=== PATIENT | female | born 1980 | race Caucasian/White ===

== ENCOUNTER 2018-05-30 14:32 | Emergency (ER) | payer OTHER ==
--- NOTE | 2018-05-30 14:33 | PDOC ---
History of Present Illness - General Chief Complaint: Vomiting/Diarrhea Stated Complaint: VOMITING, DIARRHEA, ABD CRAMPING Time Seen by Provider: 05/30/18 14:33 - History of Present Illness Initial Comments: 38 year old female with PMH of cholecystectomy and x3 presenting with headache for the past day and nausea/ vomiting/ diarrhea for the past 2 says. Patient states she had nausea, vomiting, and diarrhea that started yesterday morning for which she saw her PCP who gave her some medication for her diarrhea which has improved on OTC medication but her vomiting is still present so she is having a hard time treating her diarrhea. She also developed a 5/10 left sided acing headache over the past day. Denies blood in the diarrhea or the vomit and the vomit consists of clear liquid. Denies fevers, chills, chest pain , neck stiffness, myalgias, sore throat, or other symptoms. She does have an ibuprofen allergy after which she gets a rash and itching. 05/30/18 14:34 Past History - Past Medical History Allergies/Adverse Reactions: Allergies Allergy/AdvReac Type Severity Reaction Status Date / Time hydromorphone HCl Allergy Intermediate Itching Verified 05/30/18 14:34 [From Dilaudid] amoxicillin Allergy Hives Verified 05/30/18 14:34 bee pollen [Bee Pollen] Allergy Verified 05/30/18 14:34 ciprofloxacin Allergy Verified 05/30/18 14:34 ibuprofen Allergy Hives Verified 05/30/18 14:34 banana,eggs,strawberries Allergy Uncoded 05/30/18 14:34 Home Medications: Ambulatory Orders Ondansetron [Zofran *Odt*] 8 mg SL BID PRN 5 Days #10 od.tablet 05/30/18 Asthma: No Cancer: No Cardiac Disorders: No Diabetes: No HTN: No Seizures: No Thyroid Disease: No - Surgical History Cholecystectomy: Yes - Immunization History Td Vaccination: Yes - Suicide/Smoking/Psychosocial Hx Smoking History: Never smoked Have you smoked in the past 12 months: No Number of Cigarettes Smoked Daily: 0 Hx Alcohol Use: No Drug/Substance Use Hx: No Hx Substance Use Treatment: No Review of Systems - Review of Systems Constitutional: No: Chills, Diaphoresis, Fever HEENTM: No: Blurred Vision, Tearing Respiratory: No: Cough, Orthopnea, Shortness of Breath Cardiac (ROS): No: Chest Pain, Edema, Irregular Heart Rate ABD/GI: Yes: Diarrhea, Nausea, Vomiting : No: Dysuria, Discharge Musculoskeletal: No: Joint Pain, Muscle Pain, Muscle Weakness Integumentary: No: Bruising, Erythema, Flushing, Lesions Neurological: Yes: Headache. No: Numbness, Paresthesia Psychiatric: No: Anxiety, Depression Endocrine: No: Increased Thirst, Increased Urine *Physical Exam - Physical Exam General Appearance: Yes: Nourished, Appropriately Dressed. No: Apparent Distress HEENT: positive: EOMI, BETTINA, Normal Voice. negative: Normal ENT Inspection ( dry mucous membranes) Neck: positive: Trachea midline, Normal Thyroid. negative: Tender Respiratory/Chest: positive: Lungs Clear, Normal Breath Sounds. negative: Chest Tender, Respiratory Distress, Accessory Muscle Use Cardiovascular: positive: Regular Rhythm Gastrointestinal/Abdominal: positive: Normal Bowel Sounds, Tender (mild epigastric tendreness to deep palpation), Flat, Soft Lymphatic: negative: Adenopathy, Tenderness Musculoskeletal: positive: Normal Inspection. negative: Decreased Range of Motion Extremity: positive: Normal Capillary Refill, Normal Inspection, Normal Range of Motion. negative: Tender Integumentary: positive: Normal Color, Dry, Warm Neurologic: positive: Fully Oriented, Alert, Normal Mood/Affect, Normal Response , Motor Strength 5/5 Medical Decision Making - Medical Decision Making 38 year old female with PMH of cholecystectomy and 3 caesarian sections presenting with nausea, vomiting, and diarrhea for the past two days with mild headache now. Overall clinical syndrome concerning for viral gastroenteritis. Less likely appendicitis, cholecystitis or other more concerning abdominal pathology because patient is non-toxic with stable VS and abdominal exam is essentially benign. She tolerated crackers and soda prior to discharge. Will DC with Zofran SL, Tylenol, and continued OTC anti-diarrheal usage. 05/30/18 15:42 *DC/Admit/Observation/Transfer Diagnosis at time of Disposition: Nausea vomiting and diarrhea - Discharge Dispostion Disposition: HOME Condition at time of disposition: Improved Decision to Admit order: No - Prescriptions Prescriptions: Ondansetron [Zofran *Odt*] 8 mg SL BID PRN 5 Days #10 od.tablet PRN Reason: Nausea And/Or Vomiting - Referrals Referrals: Zafar Moeller MD [Primary Care Provider] - - Patient Instructions Printed Discharge Instructions: DI for Abdominal Pain-Adult Additional Instructions: Please stay hydrated and eat soft foods. Please use the Zofran medication under your tongue up to twice a day if you feel nauseous. Please follow up with your primary care doctor for any further issues that you have. Please return to the ED if you have new or worsening symptoms. - Post Discharge Activity
[2018-05-30] MEDS ORDERED: ONDANSETRON 4 MG/2 ML VIAL IVPUSH ONE (14:44)
[2018-05-30] MEDS ORDERED: ACETAMINOPHEN 1000 MG/100 ML VIAL (NON FORMULARY) IVPB ONE (14:44)
[2018-05-30] MEDS ORDERED: SODIUM CHLORIDE 0.9% 500 ML INFUS.BAG IV ONE (14:44)
[2018-05-30] MEDS ORDERED: FAMOTIDINE 20 MG/50 ML IVPB 20 MG/50 ML MG IVPB ONE ×2 (14:45→14:53)
[2018-05-30] MEDS ORDERED: MAG HYDROX/AL HYDROX/SIMETH 30 ML UNIT-DOSE CUP PO ONE (14:45)
[2018-05-30 14:48] VITALS: BP 110/80; PULSE 89; TEMP 98.4; BMI 31.4
[2018-05-30] MEDS ORDERED: ONDANSETRON 4 MG/2 ML VIAL ONE (14:54)
[2018-05-30] MEDS ORDERED: ACETAMINOPHEN INJECTION 100 ML IVPB ONE (14:54)
[2018-05-30 15:15] LABS: URINE APPEARANCE SL CLOUDY; URINE BILIRUBIN 1+ (NEGATIVE); URINE COLOR AMBER; URINE GLUCOSE (UA) NEGATIVE (NEGATIVE); URINE KETONE TRACE (NEGATIVE); URINE PROTEIN TRACE (NEGATIVE); URINE UROBILINOGEN 0.2 (0.2-1.0)
[2018-05-30 15:16] LABS: URINE LEUK ESTERASE TRACE (NEGATIVE); URINE NITRITE NEGATIVE (NEGATIVE)
[2018-05-30 15:17] LABS: HCG,QUALITATIVE URINE Negative
[2018-05-30 15:18] LABS: EPI CELLS 4+ /HPF; URINE BACTERIA 1+ /hpf (NEGATIVE); URINE RBC 40-60 /hpf (0-3)
[2018-05-30] MEDS ORDERED: MAG HYDROX/AL HYDROX/SIMETH 30 ML UNIT-DOSE CUP ONE (15:27)
--- NOTE | 2018-05-30 15:31 | PDOC ---
Attending Attestation - Resident Resident Name: Cassy Sheets - ED Attending Attestation I have performed the following: I have examined & evaluated the patient, The case was reviewed & discussed with the resident, I agree w/resident's findings & plan - HPI HPI: 05/30/18 15:28 Healthy 38-year-old female with history of laparoscopic cholecystectomy presents with 1 day of nonbloody nonbilious nausea/vomiting/diarrhea/epigastric discomfort. Last episode of vomiting this morning, diarrhea resolved after taking [id number] antidiarrheal agents prescribed by her PCP. The abdominal pain is intermittent, mostly epigastric now and relieved by the vomiting. No urinary complaints, no fevers or chills, no recent travel, no sick contacts, no diet change. She did take 2-3 days of antibiotics a couple of weeks ago for throat infection, no other changes. - Physicial Exam PE: 05/30/18 15:29 Vital signs normal Obese female in no acute distress, pleasant and conversant No jaundice or pallor, slightly dry mucosa Heart is regular Abdomen is soft/nontender/nondistended, epigastric discomfort to palpation without guarding or rebound. Healed lap incisional scars on the right abdomen. No CVA tenderness. - Medical Decision Making 05/30/18 15:30 38-year-old female with epigastric discomfort and nausea/vomiting/diarrhea for 1 day. Slightly dehydrated, vital signs are otherwise normal. No red flags on history or physical exam. Presentation seems most consistent with viral gastritis/gastroenteritis. Urine negative IV fluids, antacid, Tylenol Reassess
== END 2018-05-30 16:47 | disposition home or self-care (01) ==
LOC: FER 14:32
PROC: 3E033NZ Introduction of Analgesics, Hypnotics, Sedatives into Peripheral Vein, Percutaneous Approach (ICD-10-PCS; principal; 2018-05-30)
PROC: 3E033GC Introduction of Other Therapeutic Substance into Peripheral Vein, Percutaneous Approach (ICD-10-PCS; 2018-05-30)
PROC: 3E0337Z Introduction of Electrolytic and Water Balance Substance into Peripheral Vein, Percutaneous Approach (ICD-10-PCS; 2018-05-30)
DX: R11.2 Nausea with vomiting, unspecified (principal); R19.7 Diarrhea, unspecified
CPT/HCPCS: 81003; 81015; 84703; 96361; 96365; 96375; 99282-25; J0131

== ENCOUNTER 2019-05-06 14:43 | Emergency (ER) | payer OTHER ==
[2019-05-06 15:01] VITALS: BP 132/92; PULSE 104; TEMP 98.6; BMI 34.4
[2019-05-06] MEDS ORDERED: ACETAMINOPHEN 500 MG TABLET (FP) PO ONE (15:27)
--- NOTE | 2019-05-06 15:27 | PDOC ---
History of Present Illness - General Chief Complaint: Cold Symptoms Stated Complaint: SORE THROAT BODY ACHES LIGHTHEADED Time Seen by Provider: 05/06/19 15:22 History Source: Patient Exam Limitations: No Limitations - History of Present Illness Initial Comments: 39 yo F presents with flu-like symptoms since last night. +Sore throat, myalgias , chills, subjective fever. No known sick contacts. Denies N/V/D. Has children at home. Past History - Past Medical History Allergies/Adverse Reactions: Allergies Allergy/AdvReac Type Severity Reaction Status Date / Time hydromorphone HCl Allergy Intermediate Itching Verified 05/06/19 14:45 [From Dilaudid] amoxicillin Allergy Hives Verified 05/06/19 14:45 bee pollen [Bee Pollen] Allergy Verified 05/06/19 14:45 ciprofloxacin Allergy Verified 05/06/19 14:45 ibuprofen Allergy Hives Verified 05/06/19 14:45 banana,eggs,strawberries Allergy Uncoded 05/06/19 14:45 Home Medications: Ambulatory Orders Oseltamivir Phosphate [Tamiflu -] 75 mg PO BID #10 capsule 05/06/19 Asthma: No Cancer: No Cardiac Disorders: No COPD: No Diabetes: No HTN: No Seizures: No Thyroid Disease: No - Surgical History Cholecystectomy: Yes - Immunization History Td Vaccination: Yes - Psycho Social/Smoking Cessation Hx Smoking History: Never smoked Have you smoked in the past 12 months: No Number of Cigarettes Smoked Daily: 0 Information on smoking cessation initiated: No Hx Alcohol Use: No Drug/Substance Use Hx: No Hx Substance Use Treatment: No Review of Systems - Review of Systems Able to Perform ROS?: Yes Comments:: GENERAL/CONSTITUTIONAL: +Chills. +Weakness. HEAD, EYES, EARS, NOSE AND THROAT: No change in vision. No ear pain or discharge. +Sore throat. CARDIOVASCULAR: No chest pain or shortness of breath. RESPIRATORY: No cough, wheezing, or hemoptysis. GASTROINTESTINAL: No nausea, vomiting, diarrhea or constipation. GENITOURINARY: No dysuria, frequency, or change in urination. MUSCULOSKELETAL: +Muscle and joint aches. No neck or back pain. SKIN: No rash. NEUROLOGIC: No headache, vertigo, loss of consciousness, or change in strength/ sensation. ENDOCRINE: No increased thirst. No abnormal weight change. HEMATOLOGIC/LYMPHATIC: No anemia, easy bleeding, or history of blood clots. ALLERGIC/IMMUNOLOGIC: No hives or skin allergy. *Physical Exam - Vital Signs Last Vital Signs Temp Pulse Resp BP Pulse Ox 98.6 F 104 H 18 132/92 104 H 05/06/19 14:44 05/06/19 14:44 05/06/19 14:44 05/06/19 14:44 05/06/19 14:44 - Physical Exam GENERAL: Awake, alert, and fully oriented, in no acute distress HEAD: No signs of trauma EYES: PERRLA, EOMI, sclera anicteric, conjunctiva clear ENT: Auricles normal inspection, hearing grossly normal, nares patent, oropharynx erythematous without exudates. Moist mucosa NECK: Normal ROM, supple, no lymphadenopathy, JVD, or masses LUNGS: Breath sounds equal, clear to auscultation bilaterally. No wheezes, and no crackles HEART: Regular rate and rhythm, normal S1 and S2, no murmurs, rubs or gallops ABDOMEN: Soft, nontender, normoactive bowel sounds. No guarding, no rebound. No masses EXTREMITIES: Normal range of motion, no edema. No clubbing or cyanosis. No cords, erythema, or tenderness NEUROLOGICAL: Cranial nerves II through XII grossly intact. Normal speech, normal gait. Motor and sensation intact SKIN: Warm, dry, normal turgor, no rashes or lesions noted. Discharge - Discharge Information Problems reviewed: Yes Clinical Impression/Diagnosis: Viral syndrome Condition: Stable Disposition: HOME - Admission No - Additional Discharge Information Prescriptions: Oseltamivir Phosphate [Tamiflu -] 75 mg PO BID #10 capsule - Follow up/Referral - Patient Discharge Instructions Patient Printed Discharge Instructions: DI for Influenza -- Adult - Post Discharge Activity
[2019-05-06] MEDS ORDERED: ACETAMINOPHEN 500 MG TABLET (FP) ONE (15:35)
== END 2019-05-06 16:02 | disposition home or self-care (01) ==
LOC: FER 14:43
DX: B34.9 Viral infection, unspecified (principal); Z88.8 Allergy status to other drugs, medicaments and biological substances; Z91.030 Bee allergy status
CPT/HCPCS: 87070; 87880; 99281-25

== ENCOUNTER → 2022-03-01 | Day surgery (SDC) | payer OTHER | END | disposition home or self-care (01) | LOC: JRADIR 11:01 | PROVIDERS: ATTEND Internal Medicine Endocrinology, Diabetes & Metabolism | PROC: 0G9H3ZX Drainage of Right Thyroid Gland Lobe, Percutaneous Approach, Diagnostic (ICD-10-PCS; principal; 2022-03-01) | DX: E06.3 Autoimmune thyroiditis (principal) | CPT/HCPCS: 10005; 76942; 88173; 88305-TC ==

== ENCOUNTER 2024-12-06 22:36 | Emergency (ER) | payer OTHER ==
[2024-12-06 22:44] VITALS: BP 120/80; PULSE 59; RESP 16; TEMP 97.5; BMI 38.9
[2024-12-06] MEDS ORDERED: KETOROLAC TROMETHAMINE 60 MG/2 ML VIAL ONE (23:07)
[2024-12-06] MEDS: KETOROLAC TROMETHAMINE 60 MG/2 ML VIAL IM ONE (23:13)
== END 2024-12-07 00:16 | disposition home or self-care (01) ==
LOC: FER 22:36
PROC: 3E0233Z Introduction of Anti-inflammatory into Muscle, Percutaneous Approach (ICD-10-PCS; principal; 2024-12-06)
DX: G43.909 Migraine, unspecified, not intractable, without status migrainosus (principal); R11.0 Nausea; H53.149 Visual discomfort, unspecified